=== PATIENT | male | born 1955 | race Caucasian/White ===

== ENCOUNTER → 2018-03-30 | Outpatient (CLI) | payer OTHER ==
--- NOTE | 2018-03-30 10:10 | RADIOLOGY REPORT (SQ) ---
EXAM DESCRIPTION: MRI LT LOWER JOINT WITHOUT COMPLETED DATE/TIME: 03/30/2018 9:40 am REASON FOR STUDY: LEFT KNEE PAIN (M25.562) M25.562 PAIN IN LEFT KNEE COMPARISON: None. TECHNIQUE: Leftknee images acquired and stored on PACS. Multiplanar images include fat sensitive se quences as T1, water sensitive sequences as FST2 or STIR, cartilage sensitive sequences as FSPD, and gradient echo sequences. LIMITATIONS: None. FINDINGS: JOINT AND BURSAE: Small effusion. BONE CORTEX AND MARROW: Mild subchondral edema nonweightbearing surface anterolateral femoral condyle . ACL: Intact. No degeneration or ganglion cyst. PCL: Intact. MCL: Intact. No periligamentous edema or fluid. LCL: Intact. No periligamentous edema or fluid. MEDIAL MENISCUS: Increased signal anterior and posterior horn without extension to the articular surf evon. LATERAL MENISCUS: Increased signal posterior horn without extension to the articular surface. MEDIAL COMPARTMENT: Cartilage relatively preserved. No large osteophytes or subchondral edema. LATERAL COMPARTMENT: Cartilage relatively preserved. No large osteophytes. PATELLA: Full-thickness fissuring of the patellar cartilage medial to midline. Intact retinaculum. EXTENSOR MECHANISM: Intact. Quadriceps and patella tendons normal. SOFT TISSUES: Adjacent muscles and subcutaneous tissues normal. Normal flow void in popliteal artery and vein. OTHER: No other significant finding. IMPRESSION: 1. Bone contusion pattern consistent with recent lateral patellar dislocation. Full-thickness patell ar chondral fissuring without evidence of unstable osteochondral lesion 2. Intrasubstance degeneration medial and lateral meniscus. No acute tear identified. TECHNICAL DOCUMENTATION: JOB ID: [id number] [email or web address]- All Rights Reserved Reading location - IP/workstation name: [facility]
== END ==
LOC: RAD 07:45
PROVIDERS: ATTEND Orthopaedic Surgery Sports Medicine
DX: M25.562 Pain in left knee (principal)